=== PATIENT | male | born 1965 | race Caucasian/White ===

== ENCOUNTER 2022-06-10 06:45 | Inpatient (IN) ==
--- NOTE | 2022-06-05 09:54 | Anesthesiology Consultation ---
Date of Service June 05, 2022 Assessment & Plan (1) Encounter for pre-operative examination: Chart Review Chart Review: Acceptable Risk for Surgery and Patient NOT seen in Pre Admission Testing -COVID screening: Per PAT nursing assessment on 06/04/22. No known COVID-19 positive contacts or current COVID-19 related symptoms. Travel screen negative. Patient vaccinated for Covid. At surgeon discretion if preop Covid testing being done. Per cardio phone note 05/30/22= "Recent ECHO with normal LV systolic function, no wall motion abnormalities and no significant valvular abnormalities. Recent monitor without concerning arrhythmias. No further cardiac testing warranted prior to planned prostate surgery." Last seen by cardio 05/12/22= Pt with palpitations- resting HR originally in 50- 60s and now resting HR in 80s. Zio monitor ordered. 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 Pt denies beta danny at this time Will update ECHO. Encouraged decreased Diet Coke consumption. Encouraged hydration. Anatomical variant anterior MV leaflet with possible GLADYS by ECHO- normal anatomy by cardiac MRI. Recent diagnosis of prostate cancer and future upcoming surgery planned. History Surgery Operation Date: 06/10/22 08:40 Proposed Procedures p Robotic Laparoscopic Assisted Radical Retropubic Prostatectomy Possible Open Possible Pelvic Lymph Node Dissectioin Possible Suprpubic Tube Placement - Polo Ng MD Height/Weight Height: 6 ft Weight: 96.162 kg Allergies Allergy/AdvReac Type Severity Reaction Status Date / Time scallops Allergy Unknown Vomiting Verified 06/04/22 14:33 trazodone AdvReac Unknown Agitated; Verified 06/04/22 14:33 Erection Medications Home Medications Medication Instructions Recorded Confirmed Last Taken acetaminophen 500 mg capsule 1,000 mg PO Q8H PRN Pain 05/08/20 06/04/22 Unknown alprazolam 1 mg tablet (Xanax) 1 mg PO TID PRN Anxiety 05/08/20 06/04/22 Unknown ascorbic acid (vitamin C) 1,000 mg 1 g PO Q6H 05/08/20 06/04/22 Unknown tablet aspirin 81 mg tablet,delayed 81 mg PO QAM 05/08/20 06/04/22 Unknown release atorvastatin 40 mg tablet (Lipitor) 40 mg PO QAM 05/08/20 06/04/22 Unknown dextroamphetamine-amphetamine 10 10 mg PO BID 05/08/20 06/04/22 Unknown mg tablet (Adderall) diclofenac sodium 1 % topical gel 2 g topical QID 05/08/20 06/04/22 Unknown doxycycline hyclate 100 mg capsule 200 mg PO UD PRN for tick bite 05/08/20 06/04/22 Unknown ibuprofen 800 mg tablet 800 mg PO HS PRN Pain 05/08/20 06/04/22 Unknown magnesium oxide 500 mg tablet 500 mg PO HS 05/08/20 06/04/22 Unknown mupirocin calcium 2 % topical cream 1 applic topical BID 05/08/20 06/04/22 Unknown omega-3 acid ethyl esters 1 gram 1 cap PO QAM 05/08/20 06/04/22 Unknown capsule pantoprazole 40 mg tablet,delayed 40 mg PO BID 05/08/20 06/04/22 Unknown release (Protonix) pyridoxine (vitamin B6) 50 mg 50 mg PO QAM 05/08/20 06/04/22 Unknown tablet sennosides 8.6 mg tablet (Senna 8.6 mg PO UD PRN constipation 05/08/20 06/04/22 Unknown Laxative) sulfamethoxazole 800 1 tab PO BID PRN acne flare 05/08/20 06/04/22 Unknown mg-trimethoprim 160 mg tablet (Bactrim DS) cyclobenzaprine 10 mg tablet 10 mg PO TID PRN muscle spasm #60 07/24/21 06/04/22 Unknown tabs cholecalciferol (vitamin D3) 25 75 mcg PO QAM 06/04/22 06/04/22 Unknown mcg (1,000 unit) capsule (Vitamin D3) eszopiclone 3 mg tablet (Lunesta) 3 mg PO HS 06/04/22 06/04/22 Unknown Past Medical History Medical History (Updated 06/05/22 @ 09:52 by Mireille Gillis PA-C) ADD (attention deficit disorder) Anxiety Barretts esophagus Bulging discs Cervical radiculopathy ROM "has been good with all intubations" per PAT nursing assessment Contusion of right ulnar nerve w/ARDS during calcaneal fx sx. Fracture of lumbar spine History of History of COVID-19 12/2021, home tests and 1 pcr, not hosp; tachycardia, fatigue, body aches>resolved. History of Holter monitoring April 2022- due to tachycardia No concerning arrhythmias per cardio Hx of sciatica Nausea after anesthesia Orthostatic hypotension POTS Prostate cancer Reflex sympathetic dystrophy Sleep apnea Currently not using CPAP- had a repeat sleep study 05/2022 Systolic anterior movement of mitral valve "Anatomical variant of the anterior MV leaflet by ECHO with possible GLADYS; per 04/2022 cardio note- cardiac MRI last year was without GLADYS of the MV and normal anatomy. No significant GLADYS noted on 05/19/22 ECHO Past Surgical History Surgical History H/O lumbar discectomy H/O sinus surgery x3 H/O vasectomy History of arthroscopy of left shoulder History of esophagogastroduodenoscopy (EGD) History of total left hip arthroplasty History of uvulopalatopharyngoplasty History of varicose vein ligation schlerotherapy bilat. legs Hx of arthroscopy lt hip Hx of colonoscopy Hx of elbow surgery transposition ulnar nerve; rt elbow distal biceps tendon repair>retore tendon, no sx; lt distal biceps tendon repair Hx of foot surgery rt toe Social History Smoking Status: Never smoker Do You Dip or Chew Tobacco: No Hx Alcohol Use: Yes alcohol intake frequency: a few times a month Hx Substance Use: No substance use type: does not use Lab Results Anesthesia Preop Results Results Anesthesia Widget: WBC 4.92 K/ul (4.8-10.8) 06/02/22 Hgb 14.3 g/dl (14.0-18.0) 06/02/22 Hct 40.7 % (40.1-51.0) 06/02/22 Plt 222 K/uL (130-400) 06/02/22 Na 136 mmol/L (136-145) 06/02/22 K 4.4 mmol/L (3.5-5.1) 06/02/22 Cl 101 mmol/L (98-107) 06/02/22 CO2 31 mmol/L (21-32) 06/02/22 BUN 13 mg/dl (6-23) 06/02/22 Creat 1.36 mg/dl (0.6-1.4) 06/02/22 Glucose Level 88 mg/dl (70-99(Fasting)) 06/02/22 Urine Color Yellow 06/02/22 Urine Appearance Clear (Clear) 06/02/22 Urine pH 5.5 (4.5-7.5) 06/02/22 Urine Specific [place] 1.008 (1.000-1.030) 06/02/22 Urine Protein Negative (Negative) 06/02/22 Urine Glucose (UA) Negative (Negative) 06/02/22 Urine Ketones Negative (Negative) 06/02/22 Urine Blood Negative (Negative) 06/02/22 Urine Nitrite Negative (Negative) 06/02/22 Urine Bilirubin Negative (Negative) 06/02/22 Urine Urobilinogen Negative (Negative) 06/02/22 Urine Leukocyte Esterase Negative (Negative) 06/02/22 Testing Laboratory Results 06/02/22= URINE CULTURE: No growth Electrocardiogram Date: 05/12/22 NSR with sinus arrhythmia at 81bpm. Normal EKG per cardio. Chest X-Ray Date: 06/02/22 Findings: + NAD Echocardiogram Date: 05/19/22 EF: 55% LV Function: normal RWMA: + none Other Findings: + LVH (mild/concentric ) and + diastolic dysfunction (Grade I ) Basal septum is thickened and angulated consistent with sigmoid septum Proximal ascending thoracic aorta is mildly enlarged at 3.9cm Compared to report of the prior study dated 03/27/21- proximal ascending aorta diameter was 3.8cm at that time Stress Test Date: 03/27/21 Type: DSE Resting EF: 55-59% Resting LV Function: normal Stress ECHO is negative of inducible ischemia. MPHR 107%. EKG response showed no evidence of ischemia. Mild MR present. No LV outflow track gradient detected at baseline. Proximal ascending aorta was borderline dilated with diameter of 3.8cm. Other Testing Event monitor 05/13/22= Min HR 52bpm, max HR 135bpm, average HR 79bpm. Predominant underlying rhythm was SR. Isolated SVEs rare, SVE couplets were rare, and no SVE triplets. VEs rare and no VE couplets or VE triplets. (Reviewed by cardio 05/30/22- "No concerning arrhythmias/no changes at this time")
[~2022-06-10 06:45] MED LIST: HEPARIN SOD 5,000 UNIT/0.5 ML VIAL SQ SCH; LR 15ML/HR IV SCH
[2022-06-10] MEDS ORDERED: BUPIVACAINE 0.5 % 5 MG/1 ML MPF 30ML VIAL ONE (07:09)
[2022-06-10] MEDS ORDERED: fentaNYL citrate 100 MCG/2 ML VIAL ONE (07:12)
[2022-06-10] MEDS ORDERED: MIDAZOLAM HCL 1 MG/ML 2ML VIAL ONE (07:12)
--- NOTE | 2022-06-10 07:16 | History & Physical Bridge Note ---
Date of Service June 10, 2022 History & Physical Bridge Note I have examined the patient, reviewed the History & Physical and in the interval since the performance of the History & Physical I have noted the following changes of clinical significance: no changes noted
[2022-06-10] MEDS ORDERED: SCOPOLAMINE 1 MG TDSY TD ONE ×2 (07:39→07:41)
[2022-06-10] MEDS ORDERED: ePHEDrine sulfate 50 MG/ML AMP IV PRN (07:40)
[2022-06-10] MEDS ORDERED: fentaNYL citrate 100 MCG/2 ML VIAL IV PRN (07:40)
[2022-06-10] MEDS ORDERED: ATROPINE SULFATE 0.1 MG/ML 10ML SYR IV PRN (07:40)
[2022-06-10] MEDS ORDERED: ONDANSETRON INJ 2 MG/ML 2 ML VIAL IV PRN (07:40)
[2022-06-10] MEDS ORDERED: BELLADONNA/OPIUM SUPP 60 MG SUPP PR ONE ×2 (08:47→10:31)
[2022-06-10] MEDS ORDERED: HYDROmorphone INJ 2 MG/ML SYR/VIAL ONE (08:48)
[2022-06-10] MEDS ORDERED: ROCURONIUM BROMIDE 10 MG/ML 5 ML VIAL IV ONE ×5 (09:08→10:55)
[2022-06-10] MEDS ORDERED: LIDOCAINE 2% MPF LOCAL 5 ML VIAL INFIL ONE (09:08)
[2022-06-10] MEDS ORDERED: NEOSTIGMINE METHYLSULFATE 1 MG/ML 10ML VIAL ONE (09:08)
[2022-06-10] MEDS ORDERED: ONDANSETRON INJ 2 MG/ML 2 ML VIAL ONE (09:08)
[2022-06-10] MEDS ORDERED: DEXAMETHASONE SOD INJ 4 MG/ML VIAL ONE (09:08)
[2022-06-10] MEDS ORDERED: LARYING-O-JET KIT (LTA) ONE (09:08)
[2022-06-10] MEDS ORDERED: PHENYLEPHRINE 100MCG/ML 5ML SYR ONE (09:08)
[2022-06-10] MEDS ORDERED: PROPOFOL IV EMULSION 10 MG/ML 20 ML VIAL IV ONE ×2 (09:08→11:24)
[2022-06-10] MEDS ORDERED: GLYCOPYRROLATE 0.2 MG/ML VIAL ONE (09:08)
[2022-06-10] MEDS ORDERED: ePHEDrine sulfate 50 MG/ML SYR ONE (09:08)
[2022-06-10] MEDS ORDERED: FLOSEAL HEMOSTATIC MATRIX 10ML TOP ONE (11:39)
[2022-06-10] MEDS ORDERED: SURGICEL ABSORB HEMOSTAT 2IN X 14IN TOP ONE (11:39)
[2022-06-10 12:23] LABS: Basophils # (auto) 0.02 K/uL (0-0.2); Basophils % (auto) 0.2 %; Eosinophils # (auto) 0.02 K/uL (0-0.50); Eosinophils % (auto) 0.2 %; Hematocrit (blood only) 41.9 % (40.1-51.0); Hemoglobin 14.4 g/dl (14.0-18.0); Immature Granulocytes # (auto) 0.12 K/uL (0.00-0.02); Immature Granulocytes % (auto) 0.9 %; Lymphocytes # (auto) 1.12 K/uL (1.2-3.4); Lymphocytes % (auto) 8.7 %; Mean Corpuscular Hemoglobin 30.1 pg (25.0-34.0); Mean Corpuscular Hgb Conc 34.4 g/dL (32.0-36.0); Mean Corpuscular Volume 87.5 fL (80.0-100.0); Mean Platelet Volume 8.6 fL (9.4-12.4); Monocytes # (auto) 0.37 K/uL (0.24-0.82); Monocytes % (auto) 2.9 %; Neutrophils # (auto) 11.22 K/uL (1.4-6.5); Neutrophils % (auto) 87.1 %; Platelet Count 241 K/uL (130-400); RDW Coefficient of Variation 13.6 % (11.5-14.5); RDW Standard Deviation 43.5 fL (36.4-46.3); Red Blood Count 4.79 M/uL (4.63-6.08); White Blood Count 12.87 K/ul (4.8-10.8)
--- NOTE | 2022-06-10 12:28 | Operative Report ---
PG Post Operative Report Pre & Post Diagnosis Operation Date: 06/10/22 08:10 Pre-Op Diagnosis: Prostate Cancer Post-Op Diagnosis: Prostate Cancer, Periumbilical Hernia I identified the patient and participated in the time-out.: Yes Procedure Operation Date: 06/10/22 08:10 Actual Procedures p Robotic Laparoscopic Assisted Radical Retropubic Prostatectomy, with Pelvic Lymph Node Dissection, Periumbilical Hernia Repair(Not Applicable) - Polo Ng MD Surgeon Polo Ng MD Standard Machine Stitcher Salina Santillan; Linda Ramírez Estimated Blood Loss 100 Findings Consistent with Post-Op Diagnosis Specimens 1. Periprostatic fat 2. Prostate seminal vesicles 3. Left pelvic lymph nodes 4. Right pelvic lymph nodes Description of Procedure The patient was identified in the preoperative holding area, appropriate informed consents were reviewed and completed, and he was transported to the operating suite. Subcutaneous heparin was administered in the pre-operative holding area. Upon arrival in the operating suite, he received appropriate antibiotics and general anesthesia. He was positioned in dorsal lithotomy, a B&O suppository was inserted after digital rectal exam, and he was prepped and draped in standard fashion. A Pham catheter was inserted in the sterile field. A Veress needle was passed per umbilicus with uniform insufflation of the abdomen to 15mmHg. He was placed in steep Trendelenburg position. A periumbilical incision was then made to accommodate a 8mm robotic port with a Visiport introducer and it was inserted utilizing a 0 degree laparoscope. Inspection of the abdomen was carried out, and there was no evidence of traumatic entry or injury secondary to the Veress needle. He does have a periumbilical hernia which appears to originate from an area just to the right of midline. There was no bowel or significant amounts of fat contained within this hernia. After confirming a clear anterior abdominal wall, ports were subsequently placed in standard robotic prostatectomy fashion without incident. To begin the robotic portion of the case, the left lateral aspect of the sigmoid was mobilized off of the left pelvic side wall to allow the pouch of Manpreet to be appropriately visualized. I then made an incision in the pouch of Manpreet, overlying the seminal vesicles. Both SVs as well as the ampullae of the vasa were entirely dissected, with the vasa transected 3cm from the prostate. The medial umbilical ligaments were then controlled with bipolar electrocautery just inferior to the umbilicus. Following cauterization, they were divided utilizing monopolar cautery. A peritoneal incision was carried from this location to the medial aspect of the internal inguinal rings bilaterally with care to avoid opening through the ring. This incision was concluded when the vas deferens was reached. Dissection of the bladder and prostate off of the posterior aspect of the pubic arch was completed allowing full visualization of the prostate. The fat overlying the prostate was removed en bloc and passed off the table as a specimen labeled "periprostatic fat". The endopelvic fascia was cleared during this portion of the procedure, and subsequently opened - first on the right and then the left. The incision through the endopelvic fascia began near the prostate-bladder junction and was carried to the apex with extreme care to preserve all lateral levator musculature as well as the periurethral musculature and sphincter complex. I additionally preserved the puboprostatic ligaments. I then controlled the DVC with a 3-0 V-lock suture in overlapping/figure of 8 fashion. The lymph node dissection was then conducted. External iliac vessels were identified on the pelvic side wall. The packet of fat and lymphatic tissue that resides just under the iliac vein was elevated and off of the vein with a split and roll technique. The packet was dissected laterally to the circumflex vein and distally to the obturator nerve which was preserved. The proximal aspect of the packet was carried towards the bifurcation of the iliac vessels. A combination of monopolar and bipolar cautery were used to assist with control. After completing the dissection on both sides, the packets were collected and passed off of the table as specimens labeled "pelvic lymph nodes". My attention then returned to the prostate, with identification of the bladder neck aided by gentle traction on the Pham catheter and lateral to medial pressure at the presumed level of the bladder neck with the robotic instruments. An anterior cystotomy was made, the Pham balloon deflated and the catheter guided through the incision to allow anterior retraction. I attempted to preserve maximal bladder neck musculature as I circumferentially dissected around the bladder neck. After incision through the posterior aspect of the mucosa, the dissection was carried through detrusor muscle until the bilateral ampullae of the vasa were identified. The previously dissected vasa and SVs were brought through the incision and used to elevated the prostate anteriorly. A posterior plane behind the prostate was then developed - splitting Denonvilliers's fascia. This dissection was carried as far as possible towards the apex as well as far as possible laterally. An incision in the lateral prostatic fascia was then made bilaterally to facilitate control of the vascular pedicles and preservation of the nerve bundles. Vasculature running along the posterior/lateral aspect of the prostate was preserved as well as the tissue containing the nerves. The pedicles were then controlled with a series of Weck clips. The apical attachments of the prostate were remaining at that stage. The DVC was divided after control with bipolar cautery over the prostate. Continuous inspection from anterior and lateral views allowed me to closely follow the apical contour of the prostate and maximally preserve urethral length and tissue. The prostate was entirely freed at that point, and collected in an EndoCatch bag before being moved out of the field of vision. Hemostasis was confirmed and anastomosis of the bladder and urethra was completed utilizing a double armed V- Lock stitch. A new Pham catheter was inserted and the anastomosis tested with irrigation. There was no evidence of leak. A carly style stitch was placed bilaterally to functionally marsupialize the area of the lymph node dissection. The robot was undocked, the specimen extracted through expansion of the boone- umbilical camera port. The fascia was closed with a series of 0-PDS figure of 8 stitches. Of note, they made a transverse incision in the infraumbilical area and open the fascia through the hernia. I exposed all intact fascial edges before reapproximating the fascia. There appeared to be very good closure at the conclusion of the case. Monocryl was used to close all other skin incision s. The wounds were all infiltrated with half percent Marcaine and all wounds were dressed with Dermabond. The case was concluded and the patient taken to the PACU in stable condition. Salina Santillan assisted from incision through the first three quarters of the case and iLnda Ramírez assisted for the final quarter of the case. I attest to the content of the Intraoperative Record and any orders documented therein. Any exceptions are noted below.
[2022-06-10 12:40] LABS: BUN Creatinine Ratio 16.5 (10-20); Calcium 8.3 mg/dl (8.5-10.1); Creatinine Clr Calc Pharmacy 58.8 ml/min; Est GFR (African American) 67.3 ml/min; Est GFR (Non-African American) 58.1 ml/min
[2022-06-10] MEDS ORDERED: MoRPHine SULFATE 2 MG/ML CARP IV PRN (12:57)
[2022-06-10] MEDS ORDERED: oxyCODONE HCL IR 5 MG TAB (IMMEDIATE RELEASE) PO PRN ×2 (12:57)
[2022-06-10] MEDS ORDERED: MoRPHine SULFATE 4 MG/ML 1 ML CARP\\VIAL IV PRN (12:57)
[2022-06-10] MEDS: LACTATED RINGER'S 1,000 ML IV SCH (13:37)
--- NOTE | 2022-06-10 13:48 | Anesthesiology Progress Note ---
Date of Service June 10, 2022 Anesthesia Post Procedure Vital Signs Vital Signs: Temp Pulse Pulse Resp BP Pulse Ox O2 Del Method 06/10/22 13:46 97.9 F 101 H 18 101/63 94 Room Air 06/10/22 12:45 98.8 F 75 18 98/64 L 75 L Room Air 06/10/22 13:16 98.8 F 87 16 96/62 L 95 Room Air 06/10/22 12:35 97.9 F 71 14 119/73 93 Room Air 06/10/22 12:25 74 17 110/59 L 92 Room Air 06/10/22 12:15 79 18 105/61 94 Oxymask 06/10/22 12:05 88 13 97/60 L 96 Oxymask 06/10/22 11:58 97.7 F 96 H 16 112/82 96 Oxymask 06/10/22 07:17 97.7 F 88 20 122/87 95 Room Air O2 Flow Rate 06/10/22 13:46 06/10/22 12:45 06/10/22 13:16 06/10/22 12:35 06/10/22 12:25 06/10/22 12:15 6 06/10/22 12:05 6 06/10/22 11:58 6 06/10/22 07:17 Pain Intensity Bilateral Foot: Pain Intensity: 8 Abdomen: Pain Intensity: 3 Transfer of Care Handoff Completed per policy Notes Mental Status: alert / awake / arousable and participated in evaluation Patient Amnestic to Procedure: Yes Nausea / Vomiting: adequately controlled Pain: adequately controlled Airway Patency, RR, SpO2: stable & adequate BP & HR: stable & adequate Hydration State: stable & adequate Anesthetic Complications: no major complications apparent and Pt Satisfied with anesthetic care
[2022-06-10] MEDS: ACETAMINOPHEN 325 MG TAB PO SCH ×2 (14:33→20:13)
[2022-06-10] MEDS: ceFAZolin 2000MG 2,000 MG/15 ML SYR IV SCH ×2 (14:34→21:13)
[2022-06-10] MEDS: KETOROLAC 30 MG/ML VIAL IV PRN ×2 (14:39→20:11)
[2022-06-10] MEDS ORDERED: CHECK SCOPOLAMINE PATCH PLACEMENT SCH (16:00)
[2022-06-10] MEDS: ALPRAZolam 0.5 MG TABLET PO PRN (18:16)
[2022-06-10] MEDS: ONDANSETRON INJ 2 MG/ML 2 ML VIAL IV PRN (18:21)
[2022-06-10] MEDS: DOCUSATE SODIUM 100 MG CAP PO SCH (20:12)
[2022-06-10] MEDS: ESZOPICLONE 1 MG TAB PO SCH (20:12)
[2022-06-10] MEDS: PANTOprazole 40 MG TAB PO SCH (20:13)
[2022-06-10] MEDS: HEPARIN SOD 5,000 UNIT/0.5 ML VIAL SQ SCH (21:12)
[2022-06-10] MEDS: CALCIUM CARBONATE 500 MG CHEWABLE TAB PO PRN (21:27)
[2022-06-10] MEDS: PROMETHAZINE HCL 12.5 MG in SODIUM CHLORIDE 0.9% 50 ML IV PRN (23:14)
[2022-06-11] MEDS: LACTATED RINGER'S 1,000 ML IV SCH ×3 (01:54→20:43)
[2022-06-11] MEDS: ACETAMINOPHEN 325 MG TAB PO SCH ×4 (01:57→20:41)
[2022-06-11] MEDS: KETOROLAC 30 MG/ML VIAL IV PRN ×3 (06:18→20:43)
[2022-06-11] MEDS: CALCIUM CARBONATE 500 MG CHEWABLE TAB PO PRN ×3 (06:19→20:40)
--- NOTE | 2022-06-11 08:15 | Urology Progress Note ---
Date of Service June 11, 2022 Assessment & Plan (1) Prostate cancer: Plan: Postop day #1 status post prostatectomy Recovery on pace so far Continue clear liquid diet Ambulate Evaluate labs but assuming everything is stable, likely discharge home later this morning Admission and Anticipated Discharge Date Admission Date: June 10, 2022 Subjective Some nausea overnightthis was expected as he has a long history of Wetzel's esophagus and is previously experienced nausea after procedures at this nature Overall though feels well Had a small bowel movement overnight Passing some flatus Prefers to stay on clear liquids Urine clear Labs pending Physical Exam Physical Exam: Expected ecchymosis around his midline incision and a bit of bruising around his left lateralmost robotic port but otherwise abdomen soft and nontender, nondistended Results & Data ([facility]) Vital Signs (Past 12 Hours) Vital Signs Temp Pulse Resp BP BP Pulse Ox O2 Del Method 06/11/22 07:50 36.5 C 70 17 106/66 95 Room Air 06/11/22 01:58 37.5 C 71 16 114/65 93 Room Air 06/10/22 21:30 36.6 C 86 18 123/69 96 Room Air PG Care Time/CCT Total # of Minutes Spent Total Time Spent with Patient: Total time spent is greater than 50% in coordination of care (as documented) at patient's floor/unit and/or counseling patient: Coding Level of Care Code None Diagnoses Prostate cancer C61
[2022-06-11] MEDS: ATORVASTATIN 40 MG TAB PO SCH (08:16)
[2022-06-11] MEDS: PANTOprazole 40 MG TAB PO SCH ×2 (08:16→20:42)
[2022-06-11] MEDS: HEPARIN SOD 5,000 UNIT/0.5 ML VIAL SQ SCH ×2 (08:16→20:44)
[2022-06-11] MEDS: DOCUSATE SODIUM 100 MG CAP PO SCH ×2 (08:23→20:42)
[2022-06-11 08:43] LABS: Basophils # (auto) 0.01 K/uL (0-0.2); Basophils % (auto) 0.1 %; Eosinophils # (auto) 0.02 K/uL (0-0.50); Eosinophils % (auto) 0.2 %; Hematocrit (blood only) 33.7 % (40.1-51.0); Hemoglobin 11.9 g/dl (14.0-18.0); Immature Granulocytes # (auto) 0.03 K/uL (0.00-0.02); Immature Granulocytes % (auto) 0.3 %; Lymphocytes # (auto) 1.43 K/uL (1.2-3.4); Lymphocytes % (auto) 15.3 %; Mean Corpuscular Hemoglobin 30.4 pg (25.0-34.0); Mean Corpuscular Hgb Conc 35.3 g/dL (32.0-36.0); Mean Platelet Volume 9.1 fL (9.4-12.4); Monocytes % (auto) 8.6 %; Neutrophils # (auto) 7.06 K/uL (1.4-6.5); Neutrophils % (auto) 75.5 %; Platelet Count 194 K/uL (130-400); RDW Coefficient of Variation 13.4 % (11.5-14.5); RDW Standard Deviation 41.7 fL (36.4-46.3); Red Blood Count 3.92 M/uL (4.63-6.08); White Blood Count 9.35 K/ul (4.8-10.8)
[2022-06-11] MEDS: PROMETHAZINE HCL 12.5 MG in SODIUM CHLORIDE 0.9% 50 ML IV PRN ×2 (08:51→20:22)
[2022-06-11 09:21] LABS: BUN Creatinine Ratio 17.9 (10-20); Calcium 8.4 mg/dl (8.5-10.1); Creatinine Clr Calc Pharmacy 66.8 ml/min; Est GFR (African American) 78.6 ml/min; Est GFR (Non-African American) 67.8 ml/min; Potassium 4.1 mmol/L (3.5-5.1)
[2022-06-11] MEDS: AMPHETAMINE ASP/SULF/DEXTRAMPH 10 MG TAB PO SCH ×2 (10:12→13:48)
[2022-06-11] MEDS: ALPRAZolam 0.5 MG TABLET PO PRN (18:50)
[2022-06-11] MEDS: ESZOPICLONE 1 MG TAB PO SCH (20:41)
[2022-06-12] MEDS: ACETAMINOPHEN 325 MG TAB PO SCH ×2 (02:35→08:25)
[2022-06-12] MEDS: LACTATED RINGER'S 1,000 ML IV SCH (06:21)
[2022-06-12 06:51] LABS: Eosinophils # (auto) 0.11 K/uL (0-0.50); Eosinophils % (auto) 1.8 %; Hematocrit (blood only) 32.7 % (40.1-51.0); Hemoglobin 11.2 g/dl (14.0-18.0); Immature Granulocytes # (auto) 0.02 K/uL (0.00-0.02); Immature Granulocytes % (auto) 0.3 %; Lymphocytes # (auto) 1.41 K/uL (1.2-3.4); Mean Corpuscular Hemoglobin 30.3 pg (25.0-34.0); Mean Corpuscular Hgb Conc 34.3 g/dL (32.0-36.0); Mean Corpuscular Volume 88.4 fL (80.0-100.0); Mean Platelet Volume 8.8 fL (9.4-12.4); Monocytes # (auto) 0.47 K/uL (0.24-0.82); Monocytes % (auto) 7.7 %; Neutrophils # (auto) 4.11 K/uL (1.4-6.5); Neutrophils % (auto) 67.2 %; Platelet Count 154 K/uL (130-400); RDW Coefficient of Variation 13.5 % (11.5-14.5); RDW Standard Deviation 43.7 fL (36.4-46.3); White Blood Count 6.12 K/ul (4.8-10.8)
[2022-06-12 07:11] LABS: Calcium 8.1 mg/dl (8.5-10.1); Creatinine Clr Calc Pharmacy 78.2 ml/min; Est GFR (African American) 95.1 ml/min; Potassium 4.5 mmol/L (3.5-5.1)
--- NOTE | 2022-06-12 07:36 | Urology Progress Note ---
Date of Service June 12, 2022 Assessment & Plan (1) Prostate cancer: Plan 57 yo M s/p robotic radical prostatectomy on 06/10/22 We will plan for discharge later today We will keep patient on IV fluids until discharge per his request Discharged with Pham catheter in place Admission and Anticipated Discharge Date Admission Date: June 10, 2022 Subjective Afebrile with stable vitals. Urine output appropriate. Labs stable. Pain well controlled. Not experiencing any severe nausea. Tolerating diet. Passing flatus. Review of Systems Review of Systems: 14 point review of systems negative outside of what is listed above in HPI Physical Exam Physical Exam: General: Alert and oriented, no acute distress HEENT: Normocephalic, mucous membranes moist Cardiovascular: Regular rate Pulmonary: Nonlabored respirations Abdomen: Nondistended, soft, appropriately tender. Some ecchymosis around port sites. : Pham draining clear urine Extremities: Moves all 4 spontaneously Neuro: No gross deficits Skin: Warm, dry, no rashes noted Results & Data ([facility]) Vital Signs (Past 12 Hours) Vital Signs Temp Pulse Resp BP Pulse Ox O2 Del Method 06/11/22 21:00 37.4 C 75 16 114/73 95 Room Air PG Care Time/CCT Total # of Minutes Spent Total Time Spent with Patient: Total time spent is greater than 50% in coordination of care (as documented) at patient's floor/unit and/or counseling patient: Coding Level of Care Code 19292 Subseq Hosp Care Lvl 2 Diagnoses Prostate cancer C61
[2022-06-12] MEDS: KETOROLAC 30 MG/ML VIAL IV PRN (08:27)
[2022-06-12] MEDS: ONDANSETRON INJ 2 MG/ML 2 ML VIAL IV PRN (08:27)
[2022-06-12] MEDS: CALCIUM CARBONATE 500 MG CHEWABLE TAB PO PRN (08:27)
[2022-06-12] MEDS: HEPARIN SOD 5,000 UNIT/0.5 ML VIAL SQ SCH (08:29)
[2022-06-12] MEDS: ATORVASTATIN 40 MG TAB PO SCH (08:29)
[2022-06-12] MEDS: DOCUSATE SODIUM 100 MG CAP PO SCH (08:29)
--- NOTE | 2022-06-12 09:36 | Discharge Summary ---
Date of Service June 12, 2022 Admission HPI Per Admitting Provider 57-year-old male with Jacobo 3+3 equal 6 prostate cancer with a PSA of 3. Presents for robotic prostatectomy. Admission Exam Per Admitting Provider No apparent distress No respiratory distress Abdomen soft No visible abnormalities extremities, however he does walk with a crutch secondary to his prior trauma Principal Diagnosis Prostate cancer Discharge Exam General: Alert and oriented, no acute distress HEENT: Normocephalic, mucous membranes moist Cardiovascular: Regular rate Pulmonary: Nonlabored respirations Abdomen: Nondistended, soft, appropriately tender. Some ecchymosis around port sites. : Pham draining clear urine Extremities: Moves all 4 spontaneously Neuro: No gross deficits Skin: Warm, dry, no rashes noted Discharge Data Allergies Allergy/AdvReac Type Severity Reaction Status Date / Time scallops Allergy Unknown Vomiting Verified 06/10/22 07:10 trazodone AdvReac Unknown Agitated; Verified 06/10/22 07:10 Erection Procedures Performed Operation Date: 06/10/22 08:10 Actual Procedures p Robotic Laparoscopic Assisted Radical Retropubic Prostatectomy, with Pelvic Lymph Node Dissection, Periumbilical Hernia Repair(Not Applicable) - Polo Ng MD Hospital Course (1) Prostate cancer: Plan Patient underwent robotic radical prostatectomy on 06/10/2022. Transferred to the floor in stable condition. Postoperative labs were stable. Urine output was appropriate. Pain was well controlled. Pain was tolerating a diet. He was deemed medically stable for discharge 06/12/2022 Total Time Total Time Spent Total Time Spent (In Minutes): 10 Discharge Plan Discharge Items Patient Disposition: Home - Self-Care Reason For Visit: Prostate Cancer Discharge Diagnosis: Prostate Cancer Activity: Per Instructions section Lifting: No more than 10 pounds Bathing Comment: Okay to shower, no tub bath or soaking Sexual Activity: Wait until after follow-up appointment Exercise/Sports: Wait until after follow-up appointment Driving/Machine Use: Do not drive while taking prescription pain medication Non-emergency contact: Surgeon and Urologist Call non-emergency contact if: your pain is not controlled, your pain is worsening, you have a fever, your temperature is above 101, your wound has increased redness, your wound has increased drainage and your wound pain has increased Follow-up/Referrals: Celeste,Juan Miguel, DO [Primary Care Provider] - Diet: Regular Addtl Attending Provider Instructions: Please take all medications as prescribed and keep all follow-ups as scheduled. Please call our office at [phone] with any questions, concerns or need to reschedule appointments for any reason. We are happy to assist you. We have sent an antibiotic to your pharmacy of choice. Please begin antibiotic a s prescribed the day BEFORE your scheduled voiding trial at [facility]. Please continue antibiotic every 12 hours through the day AFTER your voiding trial. Activity: We recommend having someone with you for the first few days after surgery to help care for you. For the first 2 weeks after surgery, we would like you to get up and walk around your house. However, we recommend limit physical activity that would increase your heart rate. This will allow your body to rest and heal. Take naps if you feel tired. Don't lift anything heavier than 10 pounds, mow the law or ride a bicycle un til your follow-up appointment. Please avoid long car rides. Home Care: Unless directed otherwise, drink 6 to 8 glasses of water a day (enough to keep your urine light colored). This will also help keep a healthy flow of urine. We recommend using a stool softener for the first two weeks to avoid constipation. Pham Catheter or Suprapubic Catheter care: Keep the catheter well secured with either a leg back or leg strap with large bag. Empty your bag when it's about half full. You may notice some blood in the bag. This is normal after surgery and while the catheter is in place. Use mild soap (such as Dove or Dial) and water to wash the catheter and the head of your penis daily, or more frequently if needed. Return to your normal diet, we encourage good protein intake to promote healing. You may shower as normal. Please avoid tub baths or soaking until catheter removed and incisions well healed. Wearing sweat pants while you have the catheter is recommended, they will be more comfortable. Follow-up Your follow up appointments for having your catheter removed, and follow up with your physician should already be scheduled. If you have any questions regarding this, please contact our office. Your final pathology report will be discussed at your physician follow-up appointment. Call [facility] at [phone] right away if you have any of the following: Chest pain or trouble breathing (call 911 or go to the hospital) Fever of 101F or higher, uncontrolled vomiting Heavy bleeding, clots, or bright red blood from the catheter Catheter that falls out or stops draining Foul-smelling discharge from your catheter Redness, swelling, warmth, or increased pain at your incision site Drainage, pus, or bleeding from your incision Pending Studies at Discharge: Yes Studies:: pathology Stand-Alone Forms: My [facility] [employer], Smoking Cessation Medications and DC Order Prescriptions: New hydrocodone-acetaminophen 5-325 mg tablet 1 tab PO Q6H PRN (Reason: pain) Qty: 30 0RF ciprofloxacin HCl [Cipro] 500 mg tablet 500 mg PO BID Qty: 6 0RF ondansetron 4 mg tablet,disintegrating 4 mg PO Q8H PRN (Reason: nausea and vomiting) Qty: 12 0RF Continued dextroamphetamine-amphetamine [Adderall] 10 mg tablet 10 mg PO BID Rx Instructions: administer doses at least 4-6 hours apart atorvastatin [Lipitor] 40 mg tablet 40 mg PO QAM aspirin 81 mg tablet,delayed release (DR/EC) 81 mg PO QAM Label Comments: stopped 06/04/22 ascorbic acid (vitamin C) 1,000 mg tablet 1 g PO Q6H pyridoxine (vitamin B6) 50 mg tablet 50 mg PO QAM omega-3 acid ethyl esters 1 gram capsule 1 cap PO QAM acetaminophen 500 mg capsule 1,000 mg PO Q8H PRN (Reason: Pain) ibuprofen 800 mg tablet 800 mg PO HS PRN (Reason: Pain) magnesium oxide 500 mg tablet 500 mg PO HS pantoprazole [Protonix] 40 mg tablet,delayed release (DR/EC) 40 mg PO BID diclofenac sodium 1 % gel 2 g topical QID Rx Instructions: apply to single elbow, wrist or hand; for hand includes palm/fingers/back of hand mupirocin calcium 2 % cream 1 applic topical BID alprazolam [Xanax] 1 mg tablet 1 mg PO TID PRN (Reason: Anxiety) sulfamethoxazole-trimethoprim [Bactrim DS] 800-160 mg tablet 1 tab PO BID PRN (Reason: acne flare) doxycycline hyclate 100 mg capsule 200 mg PO UD PRN (Reason: for tick bite) sennosides [Senna Laxative] 8.6 mg tablet 8.6 mg PO UD PRN (Reason: constipation) cyclobenzaprine 10 mg tablet 10 mg PO TID PRN (Reason: muscle spasm) Qty: 60 1RF cholecalciferol (vitamin D3) [Vitamin D3] 25 mcg (1,000 unit) Capsule 75 mcg PO QAM eszopiclone [Lunesta] 3 mg Tablet 3 mg PO HS Discharge Orders: Discharge Order (Routine); Ordered 06/12/22 Ordered By: Chente Velásquez Admission Data Admit Date/Time: 06/10/22 12:07 Attending Provider: Polo Ng Admit Provider: Polo Ng Primary Care Provider: Juan Miguel Alonso Other Interventions: Discharge Summary Assessment (RN) Last Done: 06/12/22 12:04 Coding Level of Care Code D/C DAY MANAGEMENT <30 MINS Diagnoses Prostate cancer C61
[2022-06-12] MEDS: PANTOprazole 40 MG TAB PO SCH (09:39)
[2022-06-12] MEDS: AMPHETAMINE ASP/SULF/DEXTRAMPH 10 MG TAB PO SCH (10:08)
== END 2022-06-12 13:28 | disposition home or self-care (01) | DRG 708 ==
LOC: ASU 06:45 → 3N 12:07